=== PATIENT | male | born 1965 | race Two or more races ===

== ENCOUNTER 2017-06-26 01:53 | Inpatient (IN) | payer OTHER ==
[~2017-06-26] VITALS: Ht 170.2 cm; Wt 86.2 kg
[2017-06-26] VITALS (7 sets, daily range): BP systolic 99–138; BP diastolic 57–96
[2017-06-26 02:18] LABS: BASOPHILS % (AUTO) 1.1 % (0.0-2.0); EOSINOPHILS % (AUTO) 0.7 % (0.0-3.0); LYMPHOCYTES % (AUTO) 23.4 % (20.0-45.0); MEAN CORPUSCULAR HEMOGLOBIN 31.4 PG (27.0-31.0); MEAN CORPUSCULAR HGB CONC 34.8 G/DL (32.0-36.0); MEAN CORPUSCULAR VOLUME 90 FL (80-99); MEAN PLATELET VOLUME 9.1 FL (6.5-10.1); MONOCYTES % (AUTO) 8.7 % (1.0-10.0); NEUTROPHILS % (AUTO) 66.1 % (45.0-75.0); PLATELET COUNT 117 K/UL (150-450); RED BLOOD COUNT 4.18 M/UL (4.70-6.10); RED CELL DISTRIBUTION WIDTH 12.3 % (11.6-14.8); WHITE BLOOD COUNT 9.8 K/UL (4.8-10.8)
[2017-06-26 02:28] LABS: ANION GAP 10 mmol/L (5-15); CALCIUM 8.1 MG/DL (8.5-10.1); CARBON DIOXIDE 24 MMOL/L (21-32); CHLORIDE 102 MMOL/L (98-107); CREATININE 1.7 MG/DL (0.55-1.30); GLOMERULAR FILTRATION RATE 42.9 mL/min (>60); POTASSIUM 3.5 MMOL/L (3.5-5.1); SODIUM 136 MMOL/L (136-145)
[2017-06-26 02:42] LABS: ALANINE AMINOTRANSFERASE 38 U/L (12-78); ALBUMIN/GLOBULIN RATIO 1.2 (1.0-2.7); ASPARTATE AMINO TRANSFERASE 20 U/L (15-37); TOTAL PROTEIN 6.3 G/DL (6.4-8.2)
[2017-06-26] MEDS ORDERED: PROPRANOLOL HCL10 MG ORAL (03:04)
[2017-06-26] MEDS ORDERED: PROAIR HFA8.5 GM INH (03:04)
[2017-06-26] MEDS ORDERED: AMITRIPTYLINE H25 MG ORAL (03:04)
[2017-06-26] MEDS ORDERED: ATORVASTATIN CA20 MG ORAL (03:04)
[2017-06-26] MEDS ORDERED: TYLENOL EXTRA500 MG ORAL (03:04)
[2017-06-26] MEDS ORDERED: LISINOPRIL40 MG ORAL (03:04)
[2017-06-26] MEDS ORDERED: ASPIRIN EC325 MG ORAL (03:04)
[2017-06-26] MEDS ORDERED: MINIPRESS1 MG PO (03:04)
[2017-06-26] MEDS ORDERED: SEROQUEL100 MG ORAL (03:04)
[2017-06-26] MEDS ORDERED: IBUPROFEN600 MG ORAL (03:04)
[2017-06-26] MEDS ORDERED: HYDROCHLOROTHIA25 MG ORAL (03:04)
[2017-06-26] MEDS ORDERED: METFORMIN HCL500 M1 ORAL (03:04)
[2017-06-26] MEDS ORDERED: ASPIRIN EC81 MG ORAL (05:25)
[2017-06-26] MEDS ORDERED: PRAZOSIN HCL2 MG PO (05:25)
--- NOTE | 2017-06-26 05:33 | Emergency Room Report ---
History of Present Illness General Chief Complaint: Dizziness Source: Patient Present Illness HPI 52-year-old male presents ED for evaluation. Per EMS patient had a syncopal episode at home. Was feeling weak and dizzy x1 day. Per EMS patient was hypotensive in the field. 50s over 30s. Was given IV fluids. Patient states he feels a little better. This history of hypertension and diabetes. Does history of CVA. Denies chest pain or shortness of breath. Denies fevers or chills. No other aggravating relieving factors. Denies any other associated symptoms Allergies: Coded Allergies: No Known Allergies (Unverified , 06/26/17) Patient History Past Medical History: DM, psych hx Past Surgical History: none Pertinent Family History: none Social History: Denies: smoking, alcohol use, drug use Immunizations: UTD Reviewed Nursing Documentation: PMH: Agreed, PSxH: Agreed Nursing Documentation-PMH Hx Hypertension: Yes - high cholesterol Hx Diabetes: Yes History Of Psychiatric Problem: Yes - Depression Review of Systems All Other Systems: negative except mentioned in HPI Physical Exam Vital Signs Date Time Temp Pulse Resp B/P (MAP) Pulse Ox O2 Delivery O2 Flow Rate FiO2 06/26/17 01:30 99.1 68 16 96/57 98 Room Air Sp02 EP Interpretation: reviewed, normal General Appearance: no apparent distress, alert, GCS 15, non-toxic Head: normocephalic, atraumatic Eyes: bilateral eye normal inspection, bilateral eye PERRL ENT: hearing grossly normal, normal pharynx, no angioedema, normal voice Neck: full range of motion, supple/symm/no masses Respiratory: chest non-tender, lungs clear, normal breath sounds, speaking full sentences Cardiovascular #1: regular rate, rhythm, no edema Cardiovascular #2: 2+ carotid (R), 2+ carotid (L), 2+ radial (R), 2+ radial (L) , 2+ dorsalis pedis (R), 2+ dorsalis pedis (L) Gastrointestinal: normal bowel sounds, non tender, soft, non-distended, no guarding, no rebound Rectal: deferred Genitourinary: normal inspection, no CVA tenderness Musculoskeletal: back normal, gait/station normal, normal range of motion, non- tender Neurologic: alert, oriented x3, responsive, motor strength/tone normal, sensory intact, speech normal Psychiatric: judgement/insight normal, memory normal, mood/affect normal, no suicidal/homicidal ideation Reflexes: 3+ bicep (R), 3+ bicep (L), 3+ tricep (R), 3+ tricep (L), 3+ knee (R) , 3+ knee (L) Skin: normal color, no rash, warm/dry, well hydrated Lymphatic: no adenopathy Medical Decision Making Diagnostic Impression: Primary Impression: Syncope Qualified Codes: R55 - Syncope and collapse Additional Impressions: Hypotension Qualified Codes: I95.9 - Hypotension, unspecified Renal insufficiency ER Course Hospital Course 52-year-old male presents to ED status post syncopal episode. Hypotensive and dizzy Differential diagnoses include: GA/unstable angina, arrythmia, dehydration, CVA/ TIA Clinical course Patient placed on stretcher. on rn lab. After initial history and physical I ordered labs, EKG, chest x-ray, IVFs, CT Brain labs reviewed- no leukocytosis, hemoglobin/hematocrit ok, BUN/Cr elevated, troponins negative EKG- NSR, no acute ischemic changes interpreted by me Chest x-ray- cardiomegaly CT brain-unremarkable Patient initially hypotensive. Improved with IV fluids Case discussed with Dr. Ramírez and he agreed to accept the patient to his service for further care and support I. I feel this is a highly complex case requiring extensive working including EKG/Rhythm strip, Xray/CT/US, Blood/urine lab work, repeat exams while in ED, and administration of strong opiates/narcotics for pain control, admission to hospital or close patient follow up. Diagnosis - syncope, hypotension, renal insufficiency admitted to telemetry in serious condition Labs Test 06/26/17 02:00 White Blood Count 9.8 K/UL (4.8-10.8) Red Blood Count 4.18 M/UL (4.70-6.10) Hemoglobin 13.1 G/DL (14.2-18.0) Hematocrit 37.8 % (42.0-52.0) Mean Corpuscular Volume 90 FL (80-99) Mean Corpuscular Hemoglobin 31.4 PG (27.0-31.0) Mean Corpuscular Hemoglobin Concent 34.8 G/DL (32.0-36.0) Red Cell Distribution Width 12.3 % (11.6-14.8) Platelet Count 117 K/UL (150-450) Mean Platelet Volume 9.1 FL (6.5-10.1) Neutrophils (%) (Auto) 66.1 % (45.0-75.0) Lymphocytes (%) (Auto) 23.4 % (20.0-45.0) Monocytes (%) (Auto) 8.7 % (1.0-10.0) Eosinophils (%) (Auto) 0.7 % (0.0-3.0) Basophils (%) (Auto) 1.1 % (0.0-2.0) Sodium Level 136 MMOL/L (136-145) Potassium Level 3.5 MMOL/L (3.5-5.1) Chloride Level 102 MMOL/L (98-107) Carbon Dioxide Level 24 MMOL/L (21-32) Anion Gap 10 mmol/L (5-15) Blood Urea Nitrogen 24 mg/dL (7-18) Creatinine 1.7 MG/DL (0.55-1.30) Estimat Glomerular Filtration Rate 42.9 mL/min (>60) Glucose Level 197 MG/DL (74-106) Calcium Level 8.1 MG/DL (8.5-10.1) Total Bilirubin 0.4 MG/DL (0.2-1.0) Aspartate Amino Transf (AST/SGOT) 20 U/L (15-37) Alanine Aminotransferase (ALT/SGPT) 38 U/L (12-78) Alkaline Phosphatase 98 U/L (46-116) Total Creatine Kinase 261 U/L (26-308) Creatine Kinase MB 2.0 NG/ML (0.0-3.6) Creatine Kinase MB Relative Index 0.7 Troponin I 0.000 ng/mL (0.000-0.056) Pro-B-Type Natriuretic Peptide 32 pg/mL (0-125) Total Protein 6.3 G/DL (6.4-8.2) Albumin 3.5 G/DL (3.4-5.0) Globulin 2.8 g/dL Albumin/Globulin Ratio 1.2 (1.0-2.7) EKG Diagnostic Results Rate: normal Rhythm: NSR ST Segments: no acute changes ASA given to the pt in ED: No Rhythm Strip Diag. Results EP Interpretation: yes Rhythm: NSR, no PVC's, no ectopy Chest X-Ray Diagnostic Results Chest X-Ray Diagnostic Results : Chest X-Ray Ordered: Yes # of Views/Limited/Complete: 1 View Indication: Other - syncope EP Interpretation: Yes Interpretation: no consolidation, no effusion, no pneumothorax, no acute cardiopulmonary disease Impression: Other - cardiomegaly Electronically Signed by: Electronically signed by Isidro Aldridge MD CT/MRI/US Diagnostic Results CT/MRI/US Diagnostic Results : Imaging Test Ordered: CT head Impression no acute process Last Vital Signs Date Time Temp Pulse Resp B/P (MAP) Pulse Ox O2 Delivery O2 Flow Rate FiO2 06/26/17 04:37 97.0 73 15 118/65 98 Room Air Status: improved Disposition: ADMITTED INPATIENT Condition: Serious Referrals: [facility],REFERRING (PCP) ISIDRO ALDRIDGE M.D. Jun 26, 2017 05:33
[2017-06-26] MEDS ORDERED: Albuterol 90mcg Inhaler 8gm INH PRN ×2 (07:15→07:45)
[2017-06-26] MEDS ORDERED: Acetaminophen 500mg (ES) tab ORAL PRN (07:15)
[2017-06-26] MEDS: Aspirin EC 81mg tab ORAL SCH (08:12)
--- NOTE | 2017-06-26 09:10 | Diagnostic Imaging Report ---
Indication: Dizziness, status post fall Comparison: None Technique: Contiguous helical CT images through the brain was performed without intravenous contrast. Axial, coronal and sagittal reconstructions were reformatted. CT dose: Total DLP 1562 mGycm, CTDI volume 70.4 mGy Findings: There is no acute intracranial hemorrhage or infarct. No mass, mass effect or midline shift is identified. Ventricles and sulci are within normal limits. No extra-axial fluid collections are seen. Bony calvarium is intact. Mastoid air cells are clear. There is complete opacification of the left maxillary sinus and some mild opacification in the bilateral ethmoid sinuses consistent with chronic sinus disease. Remaining paranasal sinuses are clear. Impression: No acute intracranial abnormalities. There is complete opacification of the left maxillary sinus and some mild opacification in the bilateral ethmoid sinuses consistent with chronic sinus disease. The CT scanner at [facility] is accredited by the [employer] and the scans are performed using protocols designed to limit radiation exposure to as low as reasonably achievable to attain images of sufficient resolution adequate for diagnostic evaluation.
--- NOTE | 2017-06-26 09:11 | Diagnostic Imaging Report ---
Indication: Shortness of breath Comparison: None Findings: Single view of the chest shows a normal cardiomediastinal silhouette. Pulmonary vasculature is normal. Lung are clear. Soft tissues and osseous structures are within normal limits. Impression: No acute chest disease
[2017-06-26] MEDS: NovoLOG Insulin Flexpen SUBQ SCH ×3 (11:30→20:13)
--- NOTE | 2017-06-26 15:30 | History and Physical Report ---
DATE OF ADMISSION: 06/26/2017 REASON FOR CONSULTATION: Hypotension and syncope. HISTORY OF PRESENT ILLNESS: This is a 52-year-old male. He has a known history of hypertension and diabetes mellitus. He notes feeling lightheaded and dizzy on the day of admission. He says that at one point he stood up on his legs and both legs gave out while he did not lose consciousness completely. He was unable to get up for a short time. He has a history of depression. He has been compliant with medications. He denies any history of prior stroke. PAST MEDICAL HISTORY: 1. Bipolar. 2. Type 2 diabetes mellitus. 3. Arthritis of unclear etiology. 4. Hypertension. MEDICATIONS: Prior to admission, reviewed and reconciled. SOCIAL HISTORY: Negative for smoking, alcohol, or substance abuse. FAMILY HISTORY: Noncontributory. REVIEW OF SYSTEMS: Performed 10-point, all positives as noted above. Otherwise unremarkable. PHYSICAL EXAMINATION: GENERAL: Presently, awake, alert, and in no distress. VITAL SIGNS: Blood pressure 105/72, pulse 71, respirations 19, and afebrile. HEENT: Conjunctivae are pink. Sclerae are anicteric. Oropharynx clear. No thyromegaly. NECK: Supple. LUNGS: Clear. CARDIAC: Regular rhythm and rate. Normal S1 and S2 with no murmur, rub, or gallop. ABDOMEN: Soft and nontender. EXTREMITIES: Without joint effusions or edema. NEUROLOGIC: Reveals symmetric strength. No asterixis and appropriate mood and affect. DIAGNOSTIC DATA: EKG with sinus rhythm, IVCD, and nonspecific ST change. Chest x-ray reveals no acute process. LABORATORY DATA: Sodium 136, potassium 3.5, bicarbonate 24, BUN 24, and creatinine 1.7. Troponin negative. White count 9.8 and hemoglobin 13.1. IMPRESSION: 1. Orthostatic syncope due to medications. 2. Hypotension. 3. History of hypertension. 4. Hypovolemia. 5. Dehydration. 6. Acute kidney injury due to acute tubular necrosis. 7. Type 2 diabetes mellitus. PLAN: 1. Hydration. 2. Discontinue hydrochlorothiazide. Hold other antihypertensives until blood pressure parameters improve. 3. Hold metformin and reassess baseline renal parameters. 4. Insulin titration by sliding scale. 5. Check thyroid function. 6. The patient was advised to reduce ibuprofen use. Amari Ramírez M.D. DR: DEAN JOB#: [id number] CC:
[2017-06-26] MEDS ORDERED: Atorvastatin 20mg tab ORAL SCH (21:00)
[2017-06-27] VITALS: BP 142/95
[2017-06-27 04:00] VITALS: BP 142/95
[2017-06-27] MEDS: NovoLOG Insulin Flexpen SUBQ SCH ×3 (06:30→16:28)
[2017-06-27 07:47] LABS: ALANINE AMINOTRANSFERASE 38 U/L (12-78); ANION GAP 8 mmol/L (5-15); ASPARTATE AMINO TRANSFERASE 18 U/L (15-37); CALCIUM 8.9 MG/DL (8.5-10.1); CARBON DIOXIDE 26 MMOL/L (21-32); CHLORIDE 104 MMOL/L (98-107); GLOMERULAR FILTRATION RATE > 60 mL/min (>60); MAGNESIUM 1.5 MG/DL (1.8-2.4); POTASSIUM 4.6 MMOL/L (3.5-5.1); SODIUM 138 MMOL/L (136-145); THYROID STIMULATING HORMONE 1.931 uiU/mL (0.360-3.740); TOTAL PROTEIN 7.1 G/DL (6.4-8.2)
[2017-06-27 08:00] VITALS: BP 140/73
[2017-06-27] MEDS: Aspirin EC 81mg tab ORAL SCH (09:43)
[2017-06-27 12:00] VITALS: BP 163/93
[2017-06-27] MEDS ORDERED: MAGNESIUM SULFATE IV ONE (14:30)
[2017-06-27] MEDS ORDERED: NS IV ONE (14:30)
[2017-06-27 16:00] VITALS: BP_SYST 137; BP_SYST 145; BP_DIAS 63; BP_DIAS 80
--- NOTE | 2017-06-28 04:00 | Progress Note ---
DATE: 06/27/2017 INTERNAL MEDICINE PROGRESS NOTE SUBJECTIVE: The patient has no dizziness. Blood pressure has stabilized. He is most of his antihypertensive. He denies dizziness. OBJECTIVE: VITAL SIGNS: Blood pressure is 140/73, pulse rate 81, respiratory rate 18, and afebrile. NECK: Supple. LUNGS: Clear. CARDIAC: Regular. Normal S1 and S2. ABDOMEN: Soft. EXTREMITIES: No edema. LABORATORY DATA: Sodium is 138, potassium 4.6, bicarbonate 26, BUN 11, creatinine 1, and magnesium 1.5. TSH is 1.9. IMPRESSION: 1. Hypovolemia and dehydration likely due to antihypertensive medications . 2. Orthostatic syncope. 3. Hypomagnesemia. 4. Acute renal failure, resolved with hydration and likely due to acute tubular necrosis. PLAN: 1. Discontinue IV fluids. No resumption of terazosin or hydrochlorothiazide. 2. Discharge home on remainder of usual medications, otherwise without change. 3. Outpatient followup offered. Amari Ramírez M.D. DR: Kenroy JOB#: [id number] CC:
--- NOTE | 2017-06-28 08:28 | Discharge Summary ---
Discharge Summary Hospital Course Date of Admission Jun 26, 2017 at 02:40 Date of Discharge Jun 27, 2017 at 17:15 Admitting Diagnosis syncope, hypotension HPI Bon Coulter is a 52 year old male who was admitted on Jun 26, 2017 at 02:40 for Syncope,Hypotension Hospital Course dc summary #[id number] Discharge Medications Continued Medications: Acetaminophen* (Tylenol Extra Strength*) 500 Mg Tablet 500 MG ORAL Q6H PRN for Mild Pain/Temp > 100.5, TAB 0 Refills Albuterol Sulfate* (Proair Hfa*) 8.5 Gm Hfa.aer.ad 2 PUFFS INH Q4HR PRN for Bronchospasm, #8.5 GM 0 Refills Amitriptyline Hcl* (Amitriptyline Hcl*) 25 Mg Tablet 50 MG ORAL TID, TAB Aspirin Ec* (Aspirin Ec*) 81 Mg Tablet.dr 81 MG ORAL DAILY, TAB Atorvastatin Calcium* (Atorvastatin Calcium*) 20 Mg Tablet 20 MG ORAL BEDTIME, TAB Ibuprofen* (Motrin*) 600 Mg Tablet 600 MG ORAL Q8HR PRN for For Pain, #30 TAB Lisinopril* (Lisinopril*) 40 Mg Tablet 40 MG ORAL DAILY, TAB Metformin Hcl* (Metformin Hcl*) 500 Mg Tablet 500 MG ORAL DAILY, TAB Propranolol Hcl* (Inderal*) 10 Mg Tablet 10 MG ORAL FIVE TIMES A DAY PRN for For Anxiety, #90 TAB 0 Refills Quetiapine Fumarate* (Seroquel*) 100 Mg Tablet 100 MG ORAL BEDTIME, TAB Discontinued Medications: Hydrochlorothiazide* (Hydrochlorothiazide*) 25 Mg Tablet 25 MG ORAL DAILY, TAB Prazosin Hcl (Prazosin Hcl) 2 Mg Capsule 4 MG PO BEDTIME, CAP Discharge Condition Upon Discharge: stable Discharge Disposition Patient was discharged home/transition facility ( [facility]) Discharge Diagnoses: Discharge Instructions Discharge Instructions Special Instructions I have been assigned to complete a D/C Summary on this account. I was not involved in the patient management Jennifer Ramirez NP ([place]) Jun 28, 2017 08:28
--- NOTE | 2017-06-28 23:15 | Discharge Summary 2 SIG ---
DATE OF ADMISSION: 06/26/2017 DATE OF DISCHARGE: 06/27/2017 REASON FOR ADMISSION: 52-year-old male with history of hypertension, diabetes, bipolar disorder, high cholesterol felt lightheaded and dizzy on the day of admission. He reported that at one point, he stood up and felt that his both legs were giving out. However, he did not lose consciousness completely. He was unable to get up for a short time. He reported compliance with the medication regimen. Per paramedics, the patient was hypotensive in the field and was given IV fluids. Afterwards, the patient reported feeling slightly better. He denied chest pain or shortness of breath. No fever. No chills. Workup in the emergency department revealed negative troponin. Blood pressure -96/57. EKG revealed normal sinus rhythm. No acute ischemic changes. CT of the head revealed no acute intracranial pathology. Chest x-ray demonstrated cardiomegaly. BUN -24 and creatinine-1.7 The patient was admitted to telemetry floor with diagnosis of orthostatic syncope, hypotension, dehydration, hypovolemia, acute kidney injury, and diabetes. HOSPITAL COURSE: The patient was admitted to telemetry floor. The patient was started on IV fluids. Hydrochlorothiazide was discontinued. All other antihypertensive medications were on hold until blood pressure parameters improved. Metformin was held due to the acute kidney injury. Blood sugar was managed with sliding scale of insulin. TSH was within normal limits. Low magnesium was replaced. The patient was advised to reduce the use of ibuprofen since it can worsen renal parameters. Orthostatic blood pressure was checked .On one occasion, positive for orthostatic blood pressure changes with a sitting blood pressure -163/93 and standing down to 140/90. N The next day, the patient felt better. Blood pressure stabilized. No lightheadedness. No dizziness. Clinically improved. BUN down to 11 and creatinine down to 1.0. The patient was stable for discharge. Due to the rapid and unexpected improvement in the patient's condition, the patient was discharged in 1 day. FINAL DIAGNOSES: 1. Orthostatic syncope, secondary to medications. 2. Hypotension (with a history of hypertension). 3. Dehydration (secondary to hypovolemia). 4. Acute kidney injury (resolved with IV fluids), likely secondary to acute tubular necrosis. 5. Diabetes mellitus type 2. 6. Hypomagnesemia. DISCHARGE MEDICATIONS: See medication reconciliation list. The patient was counseled not to resume terazosin or hydrochlorothiazide. DISCHARGE INSTRUCTIONS: The patient was discharged home. FOLLOWUP: Follow up with the primary medical doctor. Amari Ramírez M.D. I have been assigned to dictate discharge summary on this account and I was not involved in the patient's management. Jennifer GoodmanSamaritan Medical CenterCristopher N.PRadha DR: FRANCISCA JOB#: [id number] CC: ISRA
--- NOTE | 2017-07-03 15:53 | Cardiology Report ---
APPROVED REPORT EKG Measurement Heart [id number] Normal sinus rhythm Nonspecific intraventricular conduction delay Nonspecific T wave abnormality Abnormal ECG
== END 2017-06-27 17:15 | disposition home or self-care (01) | DRG 207 ==
LOC: EDBD 01:53 → EMR 02:29 → 2E 02:40 → EDBEDREQ 02:50 → 2E 05:36
DX: I95.2 Hypotension due to drugs (principal); N17.0 Acute kidney failure with tubular necrosis; T46.5X5A Adverse effect of other antihypertensive drugs, initial encounter; E86.0 Dehydration; E11.9 Type 2 diabetes mellitus without complications; E86.1 Hypovolemia; I10 Essential (primary) hypertension; E83.42 Hypomagnesemia; F31.9 Bipolar disorder, unspecified; E78.00 Pure hypercholesterolemia, unspecified; Z79.84 Long term (current) use of oral hypoglycemic drugs; M19.90 Unspecified osteoarthritis, unspecified site
CPT/HCPCS: 36415; 70450; 71010; 80053; 82550; 82553; 82962; 83735; 83880; 84443; 84484; 85025; 93005; 94664; 99285; J1815; J2405; J8499

== ENCOUNTER 2017-11-13 11:11 | Emergency (ER) | payer OTHER ==
[~2017-11-13] VITALS: Ht 170.2 cm; Wt 90.7 kg
[~2017-11-13 11:11] MED LIST: AMITRIPTYLINE H25 MG ORAL; ASPIRIN EC325 MG ORAL; ASPIRIN EC81 MG ORAL; ATORVASTATIN CA20 MG ORAL; HYDROCHLOROTHIA25 MG ORAL; IBUPROFEN600 MG ORAL; LISINOPRIL40 MG ORAL; METFORMIN HCL500 M1 ORAL; MINIPRESS1 MG PO; PRAZOSIN HCL2 MG PO; PROAIR HFA8.5 GM INH; PROPRANOLOL HCL10 MG ORAL; SEROQUEL100 MG ORAL; TYLENOL EXTRA500 MG ORAL
[2017-11-13] MEDS ORDERED: MELATONIN 3 MG1 EAC1 PO (11:25)
[2017-11-13] MEDS ORDERED: PROPRANOLOL HCL40 MG ORAL (11:25)
[2017-11-13] MEDS ORDERED: TERAZOSIN HCL5 MG PO (11:25)
[2017-11-13] MEDS ORDERED: DAILY VITE1 EACH ORAL (11:25)
[2017-11-13] MEDS ORDERED: CIPROFLOXACIN500 M2 ORAL (11:25)
[2017-11-13] MEDS ORDERED: AMLODIPINE BESYL5 MG ORAL (11:25)
[2017-11-13 11:26] VITALS: BP 125/81
[2017-11-13] MEDS ORDERED: ALBUTEROL SULF8.5 GM INH (11:39)
[2017-11-13] MEDS ORDERED: PROMETHAZINE-C118 M1 ORAL (11:39)
[2017-11-13 11:43] VITALS: BP 125/81
--- NOTE | 2017-11-13 12:05 | Emergency Room Report ---
History of Present Illness General Chief Complaint: General Complaint Source: Patient Present Illness HPI 52-year-old male presents ED for evaluation. States that since yesterday he's been experiencing cough and congestion and body aches. Cough is dry. Afebrile. Pain is dull, 4 out of 10, nonradiating. Also complaining of sore throat. Denies earache. Denies sick contacts or recent travel. Notes history of asthma. Denies smoking history. No other aggravating or relieving factors. Denies any other associated symptoms Allergies: Coded Allergies: No Known Allergies (Unverified , 06/26/17) Patient History Past Medical History: DM, HTN Past Surgical History: none Pertinent Family History: none Social History: Denies: smoking, alcohol use, drug use Immunizations: UTD Reviewed Nursing Documentation: PMH: Agreed; PSxH: Agreed Nursing Documentation-PMH Hx Hypertension: Yes Hx Diabetes: Yes Hx Cancer: No Hx Gastrointestinal Problems: No Hx Neurological Problems: No Review of Systems All Other Systems: negative except mentioned in HPI Physical Exam Vital Signs Date Time Temp Pulse Resp B/P (MAP) Pulse Ox O2 Delivery O2 Flow Rate FiO2 11/13/17 11:16 99.8 94 18 125/81 96 Room Air 99.9 Sp02 EP Interpretation: reviewed, normal General Appearance: no apparent distress, alert, GCS 15, non-toxic Head: normocephalic, atraumatic Eyes: bilateral eye normal inspection, bilateral eye PERRL ENT: hearing grossly normal, normal pharynx, no angioedema, normal voice Neck: full range of motion, supple/symm/no masses Respiratory: chest non-tender, lungs clear, normal breath sounds, speaking full sentences Cardiovascular #1: regular rate, rhythm, no edema Cardiovascular #2: 2+ carotid (R), 2+ carotid (L), 2+ radial (R), 2+ radial (L) , 2+ dorsalis pedis (R), 2+ dorsalis pedis (L) Gastrointestinal: normal bowel sounds, non tender, soft, non-distended, no guarding, no rebound Rectal: deferred Genitourinary: normal inspection, no CVA tenderness Musculoskeletal: back normal, gait/station normal, normal range of motion, non- tender Neurologic: alert, oriented x3, responsive, motor strength/tone normal, sensory intact, speech normal Psychiatric: judgement/insight normal, memory normal, mood/affect normal, no suicidal/homicidal ideation Reflexes: 3+ bicep (R), 3+ bicep (L), 3+ tricep (R), 3+ tricep (L), 3+ knee (R) , 3+ knee (L) Skin: normal color, no rash, warm/dry, well hydrated Lymphatic: no adenopathy Medical Decision Making Diagnostic Impression: Primary Impression: Upper respiratory infection Qualified Codes: J06.9 - Acute upper respiratory infection, unspecified ER Course Hospital Course 52 yo M presents to ED c/o cough, congestion Differential diagnoses include: URI, pharyngitis, otitis media, asthma Clinical course Patient placed on stretcher. After initial history, physical exam reveals a male in no acute distress. Bilateral TM unremarkable. No pharyngeal erythema. No tonsillar exudates. No lymphadenopathy. lungs clear. abdomen soft. Clinical findings consistent with URI. Reassurance given. treatment is supportive therapy Diagnosis - URI Stable and discharged home with Rx albuterol, promethazine/codeine. Instructed to followup with PMD. Return to ED if symptoms recur or worsen Last Vital Signs Date Time Temp Pulse Resp B/P (MAP) Pulse Ox O2 Delivery O2 Flow Rate FiO2 11/13/17 11:43 99.9 85 18 125/81 98 Room Air 99.9 Status: improved Disposition: HOME, SELF-CARE Condition: Stable Scripts Albuterol Sulfate* (ALBUTEROL SULFATE MDI*) 8.5 Gm Hfa.aer.ad 2 PUFF INH Q6H, #1 EA 0 Refills Prov: Isidro Aldridge MD 11/13/17 Codeine/Promethazine Hcl* (PROMETHAZINE-CODEINE SYRUP*) 118 Ml Syrup 5 ML ORAL Q6H PRN for For Cough, #118 ML 0 Refills Prov: Isidro Aldridge MD 11/13/17 Referrals: [facility],REFERRING (PCP) Patient Instructions: Upper Respiratory Infection, Adult, [id number] Isidro Aldridge MD Nov 13, 2017 12:05
== END 2017-11-13 11:43 | disposition home or self-care (01) ==
LOC: EMR 11:40
DX: J06.9 Acute upper respiratory infection, unspecified (principal); E11.9 Type 2 diabetes mellitus without complications; I10 Essential (primary) hypertension
CPT/HCPCS: 99284

== ENCOUNTER 2017-12-15 20:33 | Emergency (ER) | payer OTHER ==
[~2017-12-15] VITALS: Ht 170.2 cm; Wt 90.7 kg
[~2017-12-15 20:33] MED LIST changes: +ALBUTEROL SULF8.5 GM INH; +AMLODIPINE BESYL5 MG ORAL; +CIPROFLOXACIN500 M2 ORAL; +DAILY VITE1 EACH ORAL; +MELATONIN 3 MG1 EAC1 PO; +PROMETHAZINE-C118 M1 ORAL; +PROPRANOLOL HCL40 MG ORAL; +TERAZOSIN HCL5 MG PO
--- NOTE | 2017-12-15 20:54 | Emergency Room Report ---
History of Present Illness General Chief Complaint: Foreign Body Source: Patient Present Illness HPI Is a 52-year-old male with no cerumen past medical history. He presents with chief complaint of neck pains with possible foreign body. He was eating fish yesterday around noon and he felt a bone stuck to his left neck area. He's a liter eat and drink without any problem. Hurts to swallow. No nausea no vomiting. No fever or chills. Denies any other complaint. Allergies: Coded Allergies: No Known Allergies (Unverified , 06/26/17) Patient History Past Medical History: see triage record, old chart reviewed Past Surgical History: none Pertinent Family History: none Social History: Denies: smoking Immunizations: other Reviewed Nursing Documentation: PMH: Agreed; PSxH: Agreed Nursing Documentation-PMH Hx Hypertension: Yes Hx Diabetes: Yes Hx Cancer: No Hx Gastrointestinal Problems: No Hx Neurological Problems: No Review of Systems Eye: Denies: eye pain, blurred vision ENT: Denies: ear pain, nose congestion, throat swelling Respiratory: Denies: cough, shortness of breath Cardiovascular: Denies: chest pain, palpitations Gastrointestinal: Denies: abdominal pain, diarrhea, nausea, vomiting Musculoskeletal: Denies: back pain, joint pain Skin: Denies: rash Neurological: Denies: headache, numbness Endocrine: Denies: increased thirst, increased urine Hematologic/Lymphatic: Denies: easy bruising All Other Systems: negative except mentioned in HPI Physical Exam Vital Signs Date Time Temp Pulse Resp B/P (MAP) Pulse Ox O2 Delivery O2 Flow Rate FiO2 12/15/17 20:35 97.9 73 16 118/74 96 Room Air 97.9 vitals normal Sp02 EP Interpretation: reviewed, normal General Appearance: well appearing, no apparent distress, alert Head: normocephalic, atraumatic Eyes: bilateral eye PERRL, bilateral eye EOMI ENT: hearing grossly normal, normal pharynx, other - mild erythema to the left oropharynx Neck: full range of motion, supple, no meningismus Respiratory: chest non-tender, lungs clear, normal breath sounds Cardiovascular #1: regular rate, rhythm, no murmur Gastrointestinal: normal bowel sounds, non tender, no mass, no organomegaly, no bruit, non-distended Musculoskeletal: back normal, gait/station normal, normal range of motion Psychiatric: mood/affect normal Skin: warm/dry Medical Decision Making Diagnostic Impression: Primary Impression: Injury due to foreign body Additional Impression: Foreign body sensation in throat ER Course Patient with a foreign body sensation in his left throat. No obvious foreign body on CT scan. He may have a small scratch from the bone. He may have a very small bone that was not seen. There is no rest or issue. No swelling issue. Better after viscous lidocaine. We'll discharge home. If not better will need follow-up with GI. CT/MRI/US Diagnostic Results CT/MRI/US Diagnostic Results : Imaging Test Ordered: CT neck Impression Read by radiologist. Negative for foreign body. Last Vital Signs Date Time Temp Pulse Resp B/P (MAP) Pulse Ox O2 Delivery O2 Flow Rate FiO2 12/15/17 20:35 97.9 73 16 118/74 96 Room Air 97.9 Status: improved Disposition: HOME, SELF-CARE Condition: Stable Additional Instructions: Follow-up with your doctor in 7 days. If symptom worsen or having fever, return. Otherwise you may need a referral to see a GI doctor for evaluation. JAYY SEAMAN M.D. December 15, 2017 20:54
[2017-12-15] MEDS ORDERED: Mylanta II UD 30ml ORAL ONE (21:00)
[2017-12-15] MEDS ORDERED: Lidocaine 2% Visc 15ml soln ORAL ONE (21:00)
[2017-12-15 21:55] VITALS: BP 118/74
--- NOTE | 2017-12-16 10:25 | Diagnostic Imaging Report ---
Indication: Pain. Rule out foreign body. Technique: CT soft tissues of the neck was performed utilizing automated exposure control without intravenous contrast material. Axial, sagittal and coronal images were generated. CT dose: Total DLP 583.62 mGycm; CTDI vol 20.36 mGy Comparison: None FINDINGS: Please note that evaluation of the soft tissues of the neck is limited without the use of intravenous contrast. Within these limitations, the following observations are made: No foreign body is identified. Airway is patent. There is a small calcification in the right palatine tonsil (series 3 image #22) likely representing a tonsillolith. There is no evidence of soft tissue gas or focal inflammatory change. There is mild mucosal thickening involving the left maxillary sinus. Visualized mastoid air cells are clear. Visualized intracranial structures are grossly unremarkable. There is mild degenerative change of the cervical spine. There is no bony central canal stenosis. Thyroid is unremarkable in appearance. Imaged lung apices are clear. Visualized portions of the thoracic aorta appear normal in caliber with mild atherosclerotic calcification. IMPRESSION: Exam without intravenous contrast. Within these limitations: * No evidence of foreign body. Airway is patent. * Small calcification of the right palatine tonsil compatible with a tonsillolith. No definite evidence of associated inflammatory change. * Mild left maxillary sinus disease. This corresponds with the statrad preliminary report. The CT scanner at [facility] is accredited by the [employer] and the scans are performed using protocols designed to limit radiation exposure to as low as reasonably achievable to attain images of sufficient resolution adequate for diagnostic evaluation.
== END 2017-12-15 21:55 | disposition home or self-care (01) ==
LOC: EMR 20:58
DX: R09.89 Other specified symptoms and signs involving the circulatory and respiratory systems (principal); E11.9 Type 2 diabetes mellitus without complications; I10 Essential (primary) hypertension; J32.0 Chronic maxillary sinusitis
CPT/HCPCS: 70490; 99284